=== PATIENT | male | born 1950 | race Hispanic/Latino ===

== ENCOUNTER 2024-12-19 12:19 | Emergency (ER) | payer OTHER ==
[~2024-12-19] VITALS: Ht 175.3 cm; Wt 70.8 kg
[2024-12-19] MEDS ORDERED: NEOMY SULF/BACITRA/POLYMYXIN B 1 EACH PACKET TP ONE (12:30)
--- NOTE | 2024-12-19 12:31 | ERN ---
ED Note History of Present Illness Stated Complaint: RT ELBOW, RT HAND. HEAD INJURY Chief Complaint: Mechanical Fall Time Seen by MD: 12:25 Dictation: IN HIS A 74-YEAR-OLD MALE HERE WITH HIS WITH COMPLAINTS OF A RIGHT OCCIPITAL TENDERNESS, RIGHT ELBOW ABRASION WITH PAIN, HAND AND 3RD AND 4TH FINGER PAIN STATUS POST A FALL OFF AN ESCALATOR. STATES THEY JUST FLOWN IN FROM [facility], WHERE AT THE AIRPORT AND HE FELL WHILE GETTING OFF THE ESCALATOR. NO BLOOD THINNERS NO LOC NO NAUSEA VOMITING. TETANUS SHOT IS UNKNOWN. STATES HE HAS A HISTORY OF DEMENTIA HOWEVER NEUROLOGICALLY HE IS INTACT. Allergies: Coded Allergies: No Known Allergies (Unverified Allergy, Unknown, 12/19/24) Past Medical History Past Medical History: Dementia, High Cholesterol, Hypertension Surgical History: None RN Note Reviewed/Agreed w/PFSH: Yes Review of System Dictation CONSTITUTIONAL: NEGATIVE EXCEPT FOR HPI HEAD/FACE: NEGATIVE EXCEPT FOR HPI OCCIPITAL TENDERNESS EENT: NEGATIVE EXCEPT FOR HPI RESPIRATORY: NEGATIVE EXCEPT FOR HPI GASTROINTESTINAL/ABDOMINAL: NEGATIVE EXCEPT FOR HPI GENITOURINARY: NEGATIVE EXCEPT FOR HPI MUSCULOSKELETAL: NEGATIVE EXCEPT FOR HPI RIGHT HAND PAIN/RIGHT POSTERIOR ELBOW ABRASION INTEGUMENTARY: NEGATIVE EXCEPT FOR HPI NEUROLOGICAL/PSYCH: NEGATIVE EXCEPT FOR HPI HEMATOLOGIC/LYMPHATIC: NEGATIVE EXCEPT FOR HPI ALL SYSTEMS NEGATIVE, EXCEPT NOTED ABOVE. 13 POINT REVIEW OF SYSTEMS ASSESSED AND ALL NEGATIVE EXCEPT FOR ABOVE. Initial Vital Sign VS Vital Signs Date Time Temp Pulse Resp B/P (MAP) Pulse Ox O2 Delivery O2 Flow Rate FiO2 12/19/24 12:24 97.9 79 16 168/71 100 Room Air 0 Physical Exam Dictation VITAL SIGNS REVIEWED GENERAL APPEARANCE: ALERT, ORIENTED X 3, MILD ACUTE DISTRESS, WELL DEVELOPED, NOURISHED. HEAD AND FACE: MILD RIGHT OCCIPITAL TENDERNESS WITH PALPATION NO HEMATOMA NO SELF OR RACCOON SIGN EYES: PERRL, PINK CONJUNCTIVAS, EYELID NO TRAUMA, ANTERIOR CHAMBER WITH ARCUS SENILIS. EARS: PINNAS INTACT AND NO SIGNS OF TRAUMA OR ERYTHEMA EAR CANALS CLEAR AND NO DISCHARGE TM NO ERYTHEMA NO HEMOTYMPANUM NOSE: NO DISCHARGE, NO BLEEDING. OROPHARYNX: MOUTH NORMAL, TONGUE PINK, PHARYNX CLEAR,NO ERYTHEMA, TONSILS NO EXUDATES, NO ABSCESSES NOTED, MUCOUS MEMBRANE MOIST NECK: SUPPLE, NON-TENDER, NO THYROMEGALY, NO MASSES, NO JVD, NO BRUITS BREAST:DEFERRED CHEST:NO TENDERNESS, NO CREPITUS, NO PARADOXICAL MOVEMENT, NO RETRACTIONS LUNGS:CLEAR, WELL-VENTILATED, SYMMETRIC, NO RALES, NO WHEEZING, NO RHONCHI, NO STRIDOR, GOOD BREATH SOUNDS BILATERALLY HEART: REGULAR RATE, REGULAR RHYTHM, NO MURMUR, NO GALLOPS VASCULAR: NO PERIPHERAL EDEMA, ABDOMEN: SOFT, POSITIVE BOWEL SOUNDS, NONDISTENDED, NO GUARDING, NONTENDER, NO REBOUND, NO MASSES NO HEPATOMEGALY, NO SPLENOMEGALY, NO BARNES'S SIGN, NO HERNIAS. RECTAL: DEFERRED GENITAL: DEFERRED NEUROLOGICAL: NORMAL SPEECH, MOTOR FUNCTION INTACT, SENSORY FUNCTION INTACT PATIENT STATES HE HAS A HISTORY OF DEMENTIA HOWEVER PATIENT HAS A ANSWERING QUESTIONS APPROPRIATELY MUSCULOSKELETAL: NECK NONTENDER, FULL RANGE OF MOTION, BACK NONTENDER, FULL RANGE OF MOTION, EXTREMITIES: MILD POSTERIOR RIGHT ELBOW TENDERNESS WITH PALPATION WITH A ABRASION NOTED. FULL RANGE OF MOTION NOTED. ALSO COMPLAINING OF RIGHT HAND PAIN TO THE 3RD AND 4TH FINGERS PROXIMAL SKIN: COLOR PINK, DRY, NO TURGOR, NO RASH, NO LACERATIONS, NO ABRASIONS, NO CONTUSIONS. LYMPHATIC: DEFERRED Results (Laboratory/Radiology) Laboratory/Radiology REASON: TRIP FALL STRUCK RIGHT OCCIPITAL SCALP. NO LOC NO NAUSEA VOMITING NEURO IN ORDERING PHYSICIAN: JULIO ALICEA ORGAN TUNER PROCEDURE: HEAD WO - CT HEAD/BRAIN W/O CONTRAST EXAM: COMPUTED TOMOGRAPHY OF THE BRAIN WITHOUT INTRAVENOUS CONTRAST Technique: Helical axial computed tomography of the head without intravenous contrast with coronal and sagittal reformations. CTDIvol: 52.30 mGy; DLP: 893.10 mGy???cm. Clinical Information: Trip and fall with impact to the right occipital scalp; no loss of consciousness; no nausea or vomiting; normal neurologic examination. Findings: Brain: Irwin???white matter differentiation is maintained; no acute intracranial hemorrhage, mass effect, or midline shift. Scattered hypodensities in the bilateral periventricular and deep subcortical white matter compatible with chronic small-vessel ischemic change. Ventricles and extra-axial spaces: Ventricular size and configuration are within age-appropriate limits; prominence of sulci, Sylvian fissures, and basal cisterns consistent with age-related cerebral volume loss; no extra-axial fluid collection. Brainstem and posterior fossa: Brainstem and cerebellum are unremarkable; cerebellopontine angles are clear; internal auditory canals are unremarkable. Sella and suprasellar region: Pituitary gland, optic chiasm, and pineal region are unremarkable. Orbits and paranasal sinuses: Visualized intraorbital contents are unremarkable; paranasal sinuses are clear. Calvarium and skull base: No acute calvarial or skull-base fracture identified. * No acute intracranial abnormality. * Chronic small-vessel ischemic changes and age-related cerebral volume loss. /[place] REASON: TRIP FALL STRUCK RIGHT OCCIPITAL SCALP. NO LOC NO NAUSEA VOMITING NEURO IN ORDERING PHYSICIAN: JULIO ALICEA PROCEDURE: HEAD WO - CT HEAD/BRAIN W/O CONTRAST EXAM: COMPUTED TOMOGRAPHY OF THE BRAIN WITHOUT INTRAVENOUS CONTRAST Technique: Helical axial computed tomography of the head without intravenous contrast with coronal and sagittal reformations. CTDIvol: 52.30 mGy; DLP: 893.10 mGy???cm. Clinical Information: Trip and fall with impact to the right occipital scalp; no loss of consciousness; no nausea or vomiting; normal neurologic examination. Findings: Brain: Irwin???white matter differentiation is maintained; no acute intracranial hemorrhage, mass effect, or midline shift. Scattered hypodensities in the bilateral periventricular and deep subcortical white matter compatible with chronic small-vessel ischemic change. Ventricles and extra-axial spaces: Ventricular size and configuration are within age-appropriate limits; prominence of sulci, Sylvian fissures, and basal cisterns consistent with age-related cerebral volume loss; no extra-axial fluid collection. Brainstem and posterior fossa: Brainstem and cerebellum are unremarkable; cerebellopontine angles are clear; internal auditory canals are unremarkable. Sella and suprasellar region: Pituitary gland, optic chiasm, and pineal region are unremarkable. Orbits and paranasal sinuses: Visualized intraorbital contents are unremarkable; paranasal sinuses are clear. Calvarium and skull base: No acute calvarial or skull-base fracture identified. * No acute intracranial abnormality. * Chronic small-vessel ischemic changes and age-related cerebral volume loss. /[place] XAM: CR right elbow, 3 View. CLINICAL HISTORY: RIGHT POSTERIOR ELBOW PAIN WITH A ABRASION STATUS POST FALL COMPARISON: None provided. FINDINGS: BONES: No acute fracture or aggressive appearing osseous lesion. JOINTS: The joint spaces appear within normal limits. No dislocation. No radiographic evidence of a joint effusion. SOFT TISSUES: The soft tissues are unremarkable. IMPRESSION: 1. No acute findings. /[facility] Labs Reviewed?: Yes ED Course ED Course Orders Procedure Category Date Status Time Ct Head/Brain W/O CT 12/19/24 Resulted Contrast 12:28 Elbow Comp 3+Vws Rt RAD 12/19/24 Resulted 12:28 Hand 3+Vws Rt RAD 12/19/24 Resulted 12:28 Acetaminophen 500mg PHA 12/19/24 Complete Tab (Tylenol 500mg T 12:30 Neomy PHA 12/19/24 Complete Sulf/Bacitra/Polymyxin 12:30 Tetanus,Diphtheria PHA 12/19/24 Complete Tox [Adult] (Diphther 12:30 Current Medications Medications (Trade) Dose Ordered Sig/Mathew Route PRN Reason Start Time Stop Time Status Last Admin Dose Admin Acetaminophen (TYLenol 500MG TAB) 1,000 mg ONCE ONCE PO 12/19/24 12:30 12/19/24 12:31 DC Neomycin/ Polymyxin/ Bacitracin (Triple Antibiotic Ointment) 1 appl ONCE ONCE TP 12/19/24 12:30 12/19/24 12:31 DC Tetanus/ Diphtheria Toxoids Adsorbed (DiphthERIA-teTANUS TOXOID [ADULT]/ DECAVAC) 0.5 ml ONCE ONCE IM 12/19/24 12:30 12/19/24 12:31 DC Vital Signs Date Time Temp Pulse Resp B/P (MAP) Pulse Ox O2 Delivery O2 Flow Rate FiO2 12/19/24 12:24 97.9 79 16 168/71 100 Room Air 0 1515/PATIENT REMAINS NEUROLOGICALLY INTACT AT BASELINE PER THE . TETANUS WAS UPDATED. BACITRACIN APPLIED TO ABRASION RIGHT ELBOW, NO REPAIR REQUIRED. Medical Decision Making MDM MEDICAL DISCHARGE MAKING BASED ON HPI AND PHYSICAL EXAMINATION. CT OF THE HEAD, RIGHT ELBOW AND RIGHT HAND X-RAYS PERFORMED. NO ACUTE FINDINGS OTHER THAN ISCHEMIC CHANGES CHRONIC ON THE CT HEAD TETANUS WAS UPDATED AND PATIENT GIVEN TYLENOL FOR PAIN. GIVEN CLOSED-HEAD INJURY INSTRUCTIONS. DX & DISP Disposition: Discharge Departure Impression: Primary Impression: Contusion of scalp, initial encounter Additional Impressions: Contusion of right elbow, initial encounter, Abrasion of right elbow, initial encounter, Contusion of right hand including fingers, Fall (on)(from) escalator, initial encounter, Closed head injury Condition: Stable Scripts Mupirocin (Bactroban 2% Oint) 2 % Oint 1 APPL TP TID for 5 Days, #15 GM 0 Refills apply to affected area(s) Prov: JULIO ALICEA 12/19/24 Additional Instructions: FOLLOW-UP WITH PRIMARY CARE PROVIDER IN 1 TO 2 DAYS. TAKE MEDICATIONS DIRECTED HERE IN THE EMERGENCY ROOM. OKAY TO CONTINUE HOME MEDICATIONS UNLESS OTHERWISE DISCUSSED DURING YOUR VISIT IN THE EMERGENCY ROOM TODAY. RETURN TO YOUR NEAREST EMERGENCY ROOM IF SYMPTOMS WORSEN OR IF THERE IS NO IMPROVEMENT. CALL 911 IF YOU NEED IMMEDIATE ASSISTANCE. TAKE TYLENOL OR MOTRIN [id number] NEEDED AND IF NO CONTRAINDICATIONS ARE PRESENT. INCREASE OR AL HYDRATION. A WOUND CULTURE OR URINE CULTURE WAS ORDERED HERE IN THE EMERGENCY ROOM DEPARTMENT PLEASE FOLLOW-UP WITH PRIMARY CARE PROVIDER AND ADVISE THEM TO GET REPEAT PORTS FROM OUR FACILITY. IF YOU HAD ANY MATEUSZ WRAP/SPLINTS THAT WERE APPLIED HERE, PLEASE DO NOT REMOVE THEM UNTIL YOU SEE YOUR PRIMARY CARE OR SPECIALTY. GIVE TYLENOL [id number] NEEDED FOR PAIN. COOL COMPRESSES TO SCALP PAIN THREE TO 4 TIMES A DAY NEEDED. APPLY BACTROBAN OINTMENT 3 TIMES A DAY FOR FIVE DAYS TO RIGHT ELBOW AND APPLY DRESSING. SEE YOUR PRIMARY CARE DOCTOR FOR FOLLOW UP. RETURN TO THE EMERGENCY ROOM IMMEDIATELY IF ANY CHANGES FROM HEAD INJURY INFORMATION SHEET Referrals: SELF,REFERRAL (PCP) Time of Disposition: 15:18 I have reviewed the case, and I agree with, Diagnosis and Plan JULIO ALICEA Dec 19, 2024 12:31
--- NOTE | 2024-12-19 13:15 | HMCIMG ---
EXAM: COMPUTED TOMOGRAPHY OF THE BRAIN WITHOUT INTRAVENOUS CONTRAST Technique: Helical axial computed tomography of the head without intravenous contrast with coronal and sagittal reformations. CTDIvol: 52.30 mGy; DLP: 893.10 mGy???cm. Clinical Information: Trip and fall with impact to the right occipital scalp; no loss of consciousness; no nausea or vomiting; normal neurologic examination. Findings: Brain: Irwin???white matter differentiation is maintained; no acute intracranial hemorrhage, mass effect, or midline shift. Scattered hypodensities in the bilateral periventricular and deep subcortical white matter compatible with chronic small-vessel ischemic change. Ventricles and extra-axial spaces: Ventricular size and configuration are within age-appropriate limits; prominence of sulci, Sylvian fissures, and basal cisterns consistent with age-related cerebral volume loss; no extra-axial fluid collection. Brainstem and posterior fossa: Brainstem and cerebellum are unremarkable; cerebellopontine angles are clear; internal auditory canals are unremarkable. Sella and suprasellar region: Pituitary gland, optic chiasm, and pineal region are unremarkable. Orbits and paranasal sinuses: Visualized intraorbital contents are unremarkable; paranasal sinuses are clear. Calvarium and skull base: No acute calvarial or skull-base fracture identified. * No acute intracranial abnormality. * Chronic small-vessel ischemic changes and age-related cerebral volume loss. /[place]
--- NOTE | 2024-12-19 13:30 | HMCIMG ---
EXAM: CR Right Hand, 3 View. CLINICAL HISTORY: Right hand and 3rd and 4th finger pain, status post same-level trip and fall. COMPARISON: None provided. FINDINGS: BONES: No acute fracture or destructive osseous lesion. Subchondral cystic changes noted at the metacarpophalangeal (MCP) and interphalangeal (IP) joints. JOINTS: Reduced joint spaces at MCP and IP joints consistent with degenerative arthropathy. No dislocation or subluxation. Periarticular osteophyte formation present. SOFT TISSUES: Mild periarticular soft tissue prominence. No radiopaque foreign body or soft tissue calcification. IMPRESSION: * No acute fracture or dislocation. 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 /[place]
--- NOTE | 2024-12-19 13:31 | HMCIMG ---
EXAM: CR right elbow, 3 View. CLINICAL HISTORY: RIGHT POSTERIOR ELBOW PAIN WITH A ABRASION STATUS POST FALL COMPARISON: None provided. FINDINGS: BONES: No acute fracture or aggressive appearing osseous lesion. JOINTS: The joint spaces appear within normal limits. No dislocation. No radiographic evidence of a joint effusion. SOFT TISSUES: The soft tissues are unremarkable. IMPRESSION: 1. No acute findings. /[place]
[2024-12-19] MEDS ORDERED: MUPI22O TP (15:20)
[2024-12-19 15:48] VITALS: BP 135/67; PULSE 79; RESP 20; TEMP 98.3; O2SAT 97
== END 2024-12-19 16:08 | disposition home or self-care (01) ==
LOC: EDH 12:19
DX: S00.03XA Contusion of scalp, initial encounter (principal); S50.01XA Contusion of right elbow, initial encounter; S60.221A Contusion of right hand, initial encounter; S50.311A Abrasion of right elbow, initial encounter; M19.041 Primary osteoarthritis, right hand; E78.00 Pure hypercholesterolemia, unspecified; F03.90 Unspecified dementia, unspecified severity, without behavioral disturbance, psychotic disturbance, mood disturbance, and anxiety; I10 Essential (primary) hypertension; W10.0XXA Fall (on)(from) escalator, initial encounter; Y93.89 Activity, other specified; Y92.89 Other specified places as the place of occurrence of the external cause; Y99.8 Other external cause status
CPT/HCPCS: 70450; 73080; 73130; 90714; 99284